=== PATIENT | female | born 1995 | race Caucasian/White ===

== ENCOUNTER 2017-12-01 19:35 | Emergency (ER) | payer OTHER ==
[2017-12-01] MEDS: CIPROFLOXACIN 0.3% 2.5 ML OPH RIGHT EYE (21:26)
== END 2017-12-01 21:30 | disposition home or self-care (01) ==
LOC: FTE 19:35
DX: H57.11 Ocular pain, right eye (principal)
CPT/HCPCS: 99283; Z7502